=== PATIENT | male | born 1960 | race African-American/Black ===

== ENCOUNTER 2017-07-28 15:50 | Emergency (ER) | payer MEDICAID ==
[~2017-07-28] VITALS: Ht 172.7 cm; Wt 78.0 kg
[2017-07-28 16:37] VITALS: BP 123/83
[2017-07-28 17:37] LABS: BASOPHILS % 0.5 % (0.0-2.0); EOSINOPHILS % 1.2 % (0.0-5.0); HEMATOCRIT. 35.5 % (42.0-52.0); HEMOGLOBIN. 10.7 g/dL (14.0-18.0); LYMPHOCYTES % 23.6 % (20.0-50.0); MEAN CORPUSCULAR HEMOGLOBIN 20.5 pg (28.0-32.0); MEAN CORPUSCULAR VOLUME 68.2 fL (80.0-94.0); MEAN PLATELET VOLUME 7.9 fl (7.4-10.4); MONOCYTES % 8.2 % (2.0-8.0); NEUTROPHILS % 66.5 % (40.0-76.0); PLATELET 273 x1000/uL (130-400); RED CELL DISTRIBUTION WIDTH 17.4 % (11.6-14.6)
[2017-07-28 17:40] LABS: CHLORIDE 107 mEq/L (98-107)
[2017-07-28 17:41] LABS: INR 1.1; PROTHROMBIN TIME 11.2 sec (9.4-11.6)
[2017-07-28 17:44] LABS: ETHANOL BLOOD < 10 mg/dL
[2017-07-28 17:49] LABS: PLATELET ESTIMATE NORMAL
== END 2017-07-28 19:30 | disposition left against medical advice (07) ==
LOC: ER 17:46
DX: R56.9 Unspecified convulsions (principal); I10 Essential (primary) hypertension; E05.90 Thyrotoxicosis, unspecified without thyrotoxic crisis or storm; Z87.891 Personal history of nicotine dependence; Z86.19 Personal history of other infectious and parasitic diseases
CPT/HCPCS: 36415; 80053; 84443; 85025; 85610; 99284; G0482